=== PATIENT | male | born 1935 | race Caucasian/White ===

== ENCOUNTER 2018-12-02 17:05 | Inpatient (IN) ==
[2018-12-02] MEDS ORDERED: Sodium Chloride 0.9% 1,000 ML PRIMARY IV ONE (17:31)
[2018-12-02] MEDS ORDERED: LIDOCAINE HCL 2 % 10 ML JELLY URO-JECT TOPICAL ONE (17:34)
[2018-12-02] MEDS ORDERED: LIDOCAINE HCL 2 % 10 ML JELLY URO-JECT TOPICAL PRN (17:36)
[2018-12-02 17:45] LABS: BILIRUBIN,URINE NEGATIVE (NEG); CLARITY,URINE CLEAR (CLEAR); COLOR,URINE YELLOW (Y); GLUCOSE, URINE (UA) NEGATIVE (NEG); OCCULT BLOOD,URINE Trace-intact (NEG); PH,URINE 6.5 (5.0-8.5); PROTEIN,URINE NEGATIVE (NEG); UROBILINOGEN,URINE 0.2 EU/dL (0.2)
--- NOTE | 2018-12-02 17:47 | EKG ---
[address] [address] Measurements Intervals [place] Rate: 67 P: ME: 0 QRS: -60 QRSD: 144 T: 118 QT: 446 QTc: 461 Interpretive Statements ATRIAL FIBRILLATION ELECTRONIC VENTRICULAR PACEMAKER WITH FREQUENT VPCs ABNORMAL RHYTHM ECG Compared to ECG 01/04/2013 07:31:06 pacemaker and Vpcs now present Electronically Signed On 12-03-18 09:40:18 MDT by Ricardo Amin [email or web address]
[2018-12-02 17:49] LABS: RBC,URINE 0-3 /hpf; SQUAMOUS EPITHELIAL CELL,UR RARE; URINE SAMPLE TYPE CATH SPECIMEN
[2018-12-02 18:20] LABS: VENOUS PH 7.48 (7.32-7.42)
[2018-12-02 18:37] LABS: BASOPHILS # (AUTO) 0.03 10*3/UL; BASOPHILS % (AUTO) 0.3 % (0-1); EOSINOPHILS # (AUTO) 0.17 10*3/UL; EOSINOPHILS % (AUTO) 1.6 % (0-8); Hematocrit [HCT] 38.3 % (42.0-52.0); Hemoglobin [HGB] 11.7 g/dL (14.0-18.0); LYMPHOCYTES # (AUTO) 1.57 10*3/uL; MEAN CORPUSCULAR HEMOGLOBIN 27.6 PG (27-31); MEAN CORPUSCULAR HGB CONC 30.5 g/dL (33-37); MEAN CORPUSCULAR VOLUME 90.3 FL (80-90); MEAN PLATELET VOLUME 11.5 FL (7.4-12.2); MONOCYTES # (AUTO) 1.27 10*3/UL (0.3-0.8); MONOCYTES % (AUTO) 11.6 % (5-15); NEUTROPHILS # (AUTO) 7.87 10*3/UL; RED BLOOD COUNT 4.24 10^6/uL (4.70-6.10)
[2018-12-02 18:39] LABS: PLATELET MORPHOLOGY COMMENT NORMAL MORPHOLOGY (NORM); RBC MORPHOLOGY COMMENT NORMAL MORPHOLOGY (NORM); WBC MORPHOLOGY COMMENT NORMAL MORPHOLOGY (NORM)
[2018-12-02 18:48] LABS: BLOOD UREA NITROGEN 29 mg/dL (7-22); BUN/CREATININE RATIO 36.25 (6-20); SERUM ALBUMIN 3.6 g/dL (3.5-4.8)
--- NOTE | 2018-12-02 19:11 | DI ---
CT Head WO Contrast 12/02/2018 5:35 PM History: [facility] ^confusion Comparison: None. Procedure: Noncontrast CT images through the head were reviewed. Findings: There is no acute intracranial hemorrhage or extra-axial fluid collection. The ventricles a re symmetric. There is moderate global atrophy which is within the expected range for age. Decreased attenuation in the periventricular and subcortical white matter is consistent with moderate chronic s mall vessel ischemic changes. There is otherwise normal nguyen-white differentiation without focal mass or mass-effect. The visualized portions of the mastoid air cells are clear. There is complete opacif ication of the right maxillary and frontal sinuses. Review of the osseous structures demonstrate no d epressed calvarial fracture or aggressive osseous lesion. The facial soft tissues are unremarkable. Impression: 1. No acute intracranial findings. 2. Age related senescent changes as above. 3. Complete opacification of the right maxillary and frontal sinuses.
--- NOTE | 2018-12-02 20:09 | DI ---
XR CXR 1VW 12/02/2018 6:12 PM HISTORY: [facility] [place] [facility] ^YES ^EDEMA, DYSPNEA Comparison: None. Findings: A single portable frontal view of the chest is submitted. There is a single lead left chest cardiac device with the wire tip projecting below the level of imaging. Images demonstrate hyperinflation without focal consolidation. There is no large pneumothorax. The ca rdiomediastinal silhouette is enlarged with increased pulmonary vasculature. The cardiac silhouette o bscures the left costophrenic angle limiting evaluation for a pleural effusion. There are atheromatou s calcifications in the arch of the tortuous thoracic aorta. The osseous structures are grossly unrem arkable. Impression: 1. There is no dense consolidation or pneumothorax. 2. There are findings concerning for pulmonary edema in the setting of heart failure. Left lung base effusion is not excluded.
--- NOTE | 2018-12-02 20:19 | PDOC ---
HPI - History of Present Illness History of Present Illness: This is a very nice 83-year-old gentleman who lives at [facility] since June he was more lethargic and lower with lower extremity edema was trans ferred to the ER. He is very somnolent but is arousable his daughter says he's been overweight for a long time and the ease had congestive heart failure and also lower extremity cellulitis where he almost lost his leg. 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 Patient denies any pain chest pain nausea vomiting at present time and continuously falls asleep Past Medical History Medical History: Congestive heart failure, arthritis, orbital obesity, sleep apnea, depression, dementia with behavioral disturbances Surgical History: Hip surgery Tobacco Use: Never Smoker In the Past 12 Months, Have Used or Abuse Any of the Following Substance: None Alcohol Use: None Medication / Allergies Home Medications: Home Medications Medication Instructions Recorded Confirmed Carvedilol 1 tab PO BID #60 tab 07/04/15 12/02/18 acetaminophen 500 mg tablet 1,000 mg PO Q6H PRN 09/01/17 12/02/18 benazepril 40 mg tablet 40 mg PO .qod #90 tab 09/01/17 12/02/18 buspirone 5 mg tablet 5 mg PO BID tab 09/01/17 12/02/18 cetirizine 10 mg tablet 10 mg PO QDAY tab 09/01/17 12/02/18 divalproex 250 mg tablet,delayed 250 mg PO QHS tab 09/01/17 12/02/18 release escitalopram 10 mg tablet 10 mg PO QDAY 09/01/17 12/02/18 furosemide 80 mg tablet 80 mg PO BID #90 tab 09/01/17 12/02/18 memantine 28 mg capsule 28 mg PO QDAY 09/01/17 12/02/18 sprinkle,extended release 24hr omeprazole 20 mg capsule,delayed 20 mg PO QDAY #180 cap 09/01/17 12/02/18 release rivaroxaban 20 mg tablet 20 mg PO QDAY #90 tab 09/01/17 12/02/18 tamsulosin 0.4 mg capsule 0.4 mg PO QHS cap 09/01/17 12/02/18 tramadol 50 mg tablet 50 mg PO TID tab 09/01/17 12/02/18 leuprolide (6 month) 45 mg 45 mg IM [id number] 02/23/18 12/02/18 intramuscular syringe kit jfuuhuhx-eaotgd-ysse-w.pet-alc 1 ea TOPICAL QHS ml 03/16/18 12/02/18 lotion cholecalciferol (vitamin D3) 2,000 2,000 unit PO QDAY 06/22/18 12/02/18 unit tablet potassium chloride ER 10 mEq 10 meq PO BID 08/31/18 12/02/18 tablet,extended release Furosemide [Lasix] 80 mg PO BID 12/02/18 12/02/18 Allergies/Adverse Reactions: Allergies Allergy/AdvReac Type Severity Reaction Status Date / Time codeine Allergy Hives Verified 12/02/18 17:25 hydrocodone [Hydrocodone] AdvReac HALLUCINATI Verified 12/02/18 17:25 ONS Review of Systems - Review of Systems All Systems: Reviewed & No Additional Complaints Except as Stated ROS Unobtainable: Due to Mental Status - Cardiovascular Cardiovascular: REPORTS: Edema Exam - Vitals Vital Signs: Vital Signs Temperature 96.3 F Temperature Source Temporal Artery Scan Pulse Rate [Pulse Oximeter] 68 Respiratory Rate 28 Blood Pressure [Left Arm] 131/83 Pulse Ox 96 Oxygen Flow Rate 4 Oxygen Delivery Method Nasal Cannula Height 6 ft 1 in Weight 340 lb - General General Appearance: Cooperative, Morbidly Obese - Head Head Exam: Normal Inspection, Normocephalic, Atraumatic - Neck Neck Exam: Normal Inspection - Respiratory Respiratory Exam: POSITIVE: Clear to Auscultation - Bilaterally, Decreased Breath Sounds. NEGATIVE: Wheezes, Coarse Breath Sounds - Cardiovascular Cardiovascular Exam: POSITIVE: RRR, No Murmur, No Clicks, No Gallops, No Rubs, PMI Non-Displaced - GI/Abdominal GI/Abdominal Exam: POSITIVE: Non Tender, No Masses. NEGATIVE: Guarding - Extremities Extremities Exam: POSITIVE: +3 Edema (Scrotal edema as well) Results - Labs CBC and BMP: 12/02/18 17:31 12/02/18 17:31 Assessment and Plan - Patient Problems (1) CHF (congestive heart failure) Current Visit: Yes Status: Acute Comment: I will start Lasix drip, potassium 4 to be oh twice a day Camacho catheter Code(s): I50.9 - Heart failure, unspecified (2) Sinusitis Current Visit: Yes Status: Acute Comment: Patient will be on Ancef for lower extremity cellulitis will treat the sinusitis as well Code(s): J32.9 - Chronic sinusitis, unspecified (3) Cellulitis Current Visit: No Status: Acute Comment: Both lower extremity edema and redness more on the left than the right Code(s): L03.90 - Cellulitis, unspecified (4) Dementia with behavioral disturbance Current Visit: No Status: Chronic Comment: T usual home meds Code(s): F03.91 - Unspecified dementia with behavioral disturbance Qualifiers: (5) Essential hypertension Current Visit: No Status: Chronic Comment: Stable at present time - Assessment / Plan Additional Assessment/Plan Details: Discussed with daughter and power of deputy prosecuting attorney patient is a DO NOT RESUSCITATE DO NOT RESUSCITATE DO NOT INTUBATE they do not wish to be transferred to [place] at this time and okay with me doing to the best I can my abilities here without cardiology or infectious disease backup I will order an echo I told her that this could be done only on Fridays
[2018-12-02] MEDS ORDERED: ceFAZolin Inj 2 GM in Sodium Chloride 0.9% 100 ML IV SCH (20:30)
[2018-12-02] MEDS ORDERED: DOCUSATE 100 MG CAPSULE PO PRN (20:31)
[2018-12-02] MEDS ORDERED: ACETAMINOPHEN 325 MG TABLET PO PRN (20:31)
[2018-12-02] MEDS ORDERED: ACETAMINOPHEN 500 MG TABLET PO PRN (20:31)
[2018-12-02] MEDS ORDERED: LIDOCAINE W/ SODIUM BICARB 0.5 ML SYR SUBD PRN (20:31)
[2018-12-02] MEDS ORDERED: HEPARIN 5000 UNIT/1 ML SUBCUT SCH (20:31)
[2018-12-02] MEDS ORDERED: ONDANSETRON 4 MG/2 ML VIAL IVP PRN (20:31)
[2018-12-02] MEDS ORDERED: CALCIUM CARBONATE 500 MG (TUMS) CHEWABLE TABLET PO PRN (20:31)
[2018-12-02] MEDS ORDERED: Rivaroxaban Tab 10 MG TAB PO SCH (21:00)
[2018-12-02] MEDS ORDERED: DIVALPROEX SODIUM 250 MG TABLET PO SCH (21:00)
[2018-12-02] MEDS ORDERED: TAMSULOSIN 0.4 MG CAPSULE PO SCH (21:00)
[2018-12-02] MEDS ORDERED: BENAZEPRIL HCL 20 MG TABLET PO SCH (21:00)
[2018-12-02] MEDS: ceFAZolin Inj 2gm (Premix) 2 GM/50 ML BAG IV SCH (21:18)
[2018-12-02] MEDS: Potassium Chloride Tab 10 MEQ TAB PO SCH (21:21)
[2018-12-02] MEDS: busPIRone HCL 5 MG TABLET PO SCH (21:21)
[2018-12-02] MEDS: CARVEDILOL 12.5 MG TABLET PO SCH (21:21)
[2018-12-02] MEDS: traMADol 50 MG TABLET PO SCH (21:22)
[2018-12-02] MEDS: POTASSIUM CHLORIDE 20 MEQ TAB PO SCH (21:22)
--- NOTE | 2018-12-02 22:50 | PDOC ---
General Adult HPI - General Chief Complaint: General Medical Stated Complaint: lethargy/edema Date Seen by Provider: 12/02/18 Time Seen by Provider: 17:20 Source: POSITIVE: Patient, EMS, [facility] records, Other (daughter) Exam Limitations: POSITIVE: Clinical condition (Patient is a very poor historian. Somnolent.) Nurse's Notes Reviewed & Considered: Yes EMS Report Reviewed & Considered: Verbal - History of Present Illness Initial Comment: The patient is an 83-year-old male who is brought to the emergency room from the [facility] by ambulance. The patient's daughter and the shelter staff states that for the last 2 days, approximately, the patient has had increasing lethargy and progressive pedal edema. Patient's daughter states that the patient "can't stay awake". Patient has a history of dementia and he has a cardiac pacemaker. He has a DO NOT RESUSCITATE status. Paramedics report that his blood glucose at the scene was 126. Past history of prostate cancer reportedly atrial fibrillation, hypertension and sleep apnea. History of pedal edema and cellulitis. Have you received a tetanus shot in the past 10 years?: Yes Body Location Affected: REPORTS: Lower Extremity (L), Lower Extremity (R) (Pedal edema), Other (Lethargy) Timing: REPORTS: Gradual, Getting Worse Duration: >24 hours Severity: Moderate Quality: REPORTS: "Pain" (Erythema warmth and pain on palpation distal aspects of both lower extremities) Context: DENIES: None, Sitting, Standing, Activity, Emotional stress, Coughing, Recent Trauma, Recent Surgery, Sleep, Rest, Lifting, Turning, Bending, Fall, Near Fall, Other Modifying Factors: improves with: Nothing Similar Symptoms Previously: Yes Recent Care Received: REPORTS: Denies Any Prior Injuries Related to Current Complaint?: No - Patient Home Medications Home Medications: Home Medications Carvedilol 1 tab PO BID #60 tab 07/04/15 acetaminophen 500 mg tablet 1,000 mg PO Q6H PRN 09/01/17 benazepril 40 mg tablet 40 mg PO .qod #90 tab 09/01/17 buspirone 5 mg tablet 5 mg PO BID tab 09/01/17 cetirizine 10 mg tablet 10 mg PO QDAY tab 09/01/17 divalproex 250 mg tablet,delayed release 250 mg PO QHS tab 09/01/17 escitalopram 10 mg tablet 10 mg PO QDAY 09/01/17 furosemide 80 mg tablet 80 mg PO BID #90 tab 09/01/17 memantine 28 mg capsule sprinkle,extended release 24hr 28 mg PO QDAY 09/01/17 omeprazole 20 mg capsule,delayed release 20 mg PO QDAY #180 cap 09/01/17 rivaroxaban 20 mg tablet 20 mg PO QDAY #90 tab 09/01/17 tamsulosin 0.4 mg capsule 0.4 mg PO QHS cap 09/01/17 tramadol 50 mg tablet 50 mg PO TID tab 09/01/17 leuprolide (6 month) 45 mg intramuscular syringe kit 45 mg IM [id number] 02/23/18 vtskykog-ywwfiv-eryf-w.pet-alc lotion 1 ea TOPICAL QHS ml 03/16/18 cholecalciferol (vitamin D3) 2,000 unit tablet 2,000 unit PO QDAY 06/22/18 potassium chloride ER 10 mEq tablet,extended release 10 meq PO BID 08/31/18 Furosemide [Lasix] 80 mg PO BID 12/02/18 - Patient Allergies Allergies/Adverse Reactions: Allergies Allergy/AdvReac Type Severity Reaction Status Date / Time codeine Allergy Hives Verified 12/02/18 17:25 hydrocodone [Hydrocodone] AdvReac HALLUCINATI Verified 12/02/18 17:25 ONS Past Medical History - heen HEENT History: Denies History Cardiovascular History: Hypertension, Arrhythmia Additional Cardiovasular History: A FIB PER EKG. PT STARTED ON COUMADIN/LOVENOX THERAPY PER DR COLIN PRE OP Respiratory History: Sleep Apnea Gastrointestinal History: GERD Genitourinary History: Denies History Endocrine History: Denies History Musculoskeletal History: Arthritis, Joint Pain Prosthesis or Implant: Yes Neurological History: Denies History Blood Disorders: Denies History Psychiatric History: Denies History Cancer History: Other (please comment) In Past Year Been Physically Harmed or Verbally Threatened: No History of MDRO: No Tobacco Use: Never Smoker Alcohol Use: None In the Past 12 Months, Have Used or Abuse Any Substance: None Previous Surgical History: Yes Type / Date of Surgery: KNEE, HIP, PACER Anesthesia Reactions: Yes (PONV) Significant Family History: No pertinent family hx Past Medical History Reviewed: Reviewed - No Changes ROS - Limitations ROS Limitations: No Limitations Constitution: REPORTS: Weakness Cardiovascular: REPORTS: Denies Cardiac Symptoms Respiratory: REPORTS: Shortness Of Breath Neurological: REPORTS: Denies Neuro Symptoms Gastrointestinal: REPORTS: Denies GI Symptoms Endocrine: REPORTS: Denies Symptoms Musculoskeletal: REPORTS: Lower Extremity Swelling Genitourinary: REPORTS: Denies Symptoms Eyes: REPORTS: Denies Symptoms ENT: REPORTS: Denies Symptoms Skin: REPORTS: Other (Redness warmth and tenderness distal aspects of both lower legs; pedal edema both lower legs) Lympathic: REPORTS: Denies Lympathic Symptoms Immunologic: POSITIVE: Denies Symptoms Psychiatric: POSITIVE: Denies Psych Symptoms General Adult Exam - General Appearance General Appearance: POSITIVE: Cooperative, No Acute Distress, No Evidence of Trauma, Lethargic (Lethargic but answers most questions appropriately. Disoriented to date and president. Recognizes and is appropriately conversant with daughter. Somnolent.). NEGATIVE: Alert - HEENT HEENT: POSITIVE: Head Inspection Nml, Eyes Inspection Nml, Ears Inspection Nml, Nose Inspection Nml, Oral/Dental Inspect. Nml, Pharynx Inspect. Nml, PERRL, EOMI - Pupils Pupil Size: 3 mm: Bilateral (PERRLA) - Neck Neck: POSITIVE: Normal Inspection, Thyroid Normal - Respiratory Respiratory: POSITIVE: Rales (Bibasilar rales posteriorly). NEGATIVE: Breath Sounds Normal - Cardiovascular Cardiovascular: POSITIVE: Regular Rate & Rhythm, No Murmur, No Gallop Peripheral Pulses: Radial (R): 2+, Radial (L): 2+ - Abdomen Abdomen: Soft: (All Quadrants), Normal Bowel Sounds: (All Quadrants), Denies Tenderness: (All Quadrants), No Splenomegaly: (All Quadrants), No Hepatomegaly: (All Quadrants), No Guarding: (All Quadrants), No Rebound: (All Quadrants), No Palpable Pulse: (All Quadrants), No Palpabale Mass: (All Quadrants), No Distention: (All Quadrants), No Rigidity: (All Quadrants) Additional Abdominal Details: Patient is incontinent of urine and patient's garments are urine soaked. Patient has a prominent bone ileal rash and erythema in the inguinal areas and over the genitalia; no skin breakdown or signs of gangrene. - Back Back: POSITIVE: Normal Inspection. NEGATIVE: CVA Tenderness, Thoracic Tenderness, Lumbosacral Tenderness - Skin Skin: POSITIVE: Warmth, Erythema (Warmth and erythema over area of pedal edema both lower extremities) - Extremities Extremity: Non-Tender: (LUE), (RUE), Normal ROM: (All Extremities), Normal Inspection: (LUE), (RUE), Pelvis Stable: (All Extremities), Normal Tendon Exam: (All Extremities), Edema / Swelling: (RLE), (LLE), Signs / Symptoms of Infection Present: (RLE), (LLE), Erythema: (RLE), (LLE) Additional Extremities Details: Bilateral pedal edema with warmth and erythema and distal aspects of both lower extremities and dorsums of feet compatible with cellulitis. 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 NEGATIVE: Affect Apporpriate (Somnolent), Oriented X3 (Disoriented to time and president), Disoriented To Time Images - Complete Complete: 1 - Bilateral pedal edema with cellulitis General Adult Progress - Results Reviewed by me Xrays/CTs/US Reviewed by me: Yes Discussed with Radiologist: Yes Radiology Findings: Compatible with pulmonary edema; no consolidations. Lab Results Reviewed by Me: Yes (2 blood cultures drawn) Lab Results:: Laboratory Results 12/02/18 12/02/18 12/02/18 17:31 17:31 17:31 WBC 10.92 H RBC 4.24 L Hgb 11.7 L Hct 38.3 L MCV 90.3 H MCH 27.6 MCHC 30.5 L RDW Std Deviation 53.2 H RDW Coeff of Abhinav 16.5 H Plt Count 272 MPV 11.5 Immature Gran % (Auto) 0.1 Neut % (Auto) 72.0 Lymph % (Auto) 14.4 Whitman % (Auto) 11.6 Eos % (Auto) 1.6 Baso % (Auto) 0.3 Immature Gran # (Auto) 0.01 Neut # (Auto) 7.87 Lymph # (Auto) 1.57 Whitman # (Auto) 1.27 H Eos # (Auto) 0.17 Baso # (Auto) 0.03 WBC Morphology Comment Normal morphology Plt Morphology Comment Normal morphology RBC Morph Comment Normal morphology VBG pH VBG pCO2 VBG HCO3 VBG Base Excess Sodium 142 Potassium 3.8 Chloride 101 Carbon Dioxide 32 Anion Gap 9 BUN 29 H Creatinine 0.8 BUN/Creatinine Ratio 36.25 H Glucose 118 H Calculated Osmolality 300.0 H Lactic Acid 1.4 Calcium 9.2 Magnesium 2.5 H Total Bilirubin 0.2 L AST 32 ALT 28 Alkaline Phosphatase 155 H Total Creatine Kinase CK-MB (CK-2) Troponin I C-Reactive Protein 5.0 H NT-Pro-B Natriuret Pep 2430 H Total Protein 7.3 Albumin 3.6 Globulin 3.8 Albumin/Globulin Ratio 0.90 L Ur Collection Type Urine Color Urine Clarity Urine pH Ur Specific [place] Urine Protein Urine Glucose (UA) Urine Ketones Urine Occult Blood Urine Nitrate Urine Bilirubin Urine Urobilinogen Ur Leukocyte Esterase Urine RBC Urine WBC Ur Squamous Epith Cells Ur Renal Epithelial Cell Urine Crystals Urine Bacteria Urine Casts Urine Mucus Urine Trichomonas Urine Yeast Ur Culture Indicated? 12/02/18 12/02/18 12/02/18 17:31 17:38 18:08 WBC RBC Hgb Hct MCV MCH MCHC RDW Std Deviation RDW Coeff of Abhinav Plt Count MPV Immature Gran % (Auto) Neut % (Auto) Lymph % (Auto) [place] % (Auto) Eos % (Auto) Baso % (Auto) Immature Gran # (Auto) Neut # (Auto) Lymph # (Auto) [place] # (Auto) Eos # (Auto) Baso # (Auto) WBC Morphology Comment Plt Morphology Comment RBC Morph Comment VBG pH VBG pCO2 VBG HCO3 VBG Base Excess Sodium Potassium Chloride Carbon Dioxide Anion Gap BUN Creatinine BUN/Creatinine Ratio Glucose Calculated Osmolality Lactic Acid Calcium Magnesium Total Bilirubin AST ALT Alkaline Phosphatase Total Creatine Kinase 130 CK-MB (CK-2) 4.97 Troponin I < 0.012 C-Reactive Protein NT-Pro-B Natriuret Pep Total Protein Albumin Globulin Albumin/Globulin Ratio Ur Collection Type Cath specimen Urine Color Yellow Urine Clarity Clear Urine pH 6.5 Ur Specific [place] 1.015 Urine Protein Negative Urine Glucose (UA) Negative Urine Ketones Negative Urine Occult Blood Trace-intact H Urine Nitrate Negative Urine Bilirubin Negative Urine Urobilinogen 0.2 Ur Leukocyte Esterase Negative Urine RBC 0-3 Urine WBC None Ur Squamous Epith Cells Rare Ur Renal Epithelial Cell None Urine Crystals None Urine Bacteria None Urine Casts None Urine Mucus Rare Urine Trichomonas None Urine Yeast None Ur Culture Indicated? Culture not set 12/02/18 18:12 WBC RBC Hgb Hct MCV MCH MCHC RDW Std Deviation RDW Coeff of Abhinav Plt Count MPV Immature Gran % (Auto) Neut % (Auto) Lymph % (Auto) [place] % (Auto) Eos % (Auto) Baso % (Auto) Immature Gran # (Auto) Neut # (Auto) Lymph # (Auto) [place]man # (Auto) Eos # (Auto) Baso # (Auto) WBC Morphology Comment Plt Morphology Comment RBC Morph Comment VBG pH 7.48 H VBG pCO2 39 L VBG HCO3 29 H VBG Base Excess 5 H Sodium Potassium Chloride Carbon Dioxide Anion Gap BUN Creatinine BUN/Creatinine Ratio Glucose Calculated Osmolality Lactic Acid Calcium Magnesium Total Bilirubin AST ALT Alkaline Phosphatase Total Creatine Kinase CK-MB (CK-2) Troponin I C-Reactive Protein NT-Pro-B Natriuret Pep Total Protein Albumin Globulin Albumin/Globulin Ratio Ur Collection Type Urine Color Urine Clarity Urine pH Ur Specific [place] Urine Protein Urine Glucose (UA) Urine Ketones Urine Occult Blood Urine Nitrate Urine Bilirubin Urine Urobilinogen Ur Leukocyte Esterase Urine RBC Urine WBC Ur Squamous Epith Cells Ur Renal Epithelial Cell Urine Crystals Urine Bacteria Urine Casts Urine Mucus Urine Trichomonas Urine Yeast Ur Culture Indicated? CBC and BMP: 12/02/18 17:31 12/02/18 17:31 EKG Interpreted/Reviewed By Me:: Yes (demand pacemaker) EKG Interpretation:: POSITIVE: Abnormal EKG (Demand pacemaker) - Patient's Progress Pain Medication Addressed: POSITIVE: Not Applicable School/Work Release Addressed: POSITIVE: Not Applicable Re-Examine Time: 19:30 Re-Examine Comment: 2 blood cultures were drawn. Case was discussed with leonela carmona operations accountant. Diagnosis is cellulitis, pedal edema and congestive heart failure. Patient is admitted to hospitalist for further evaluation and treatment. Status: POSITIVE: Unchanged, Re-Examined Antibiotics Given: No - Consult Consult (If Yes, Name of Consulting MD & Time Called): Yes (Dr. Guzman, [facility] t 1930,) Consulting MD will see pt:: POSITIVE: [facility] Admit Counseled: POSITIVE: Patient, Family, RE: Lab Results, RE: Radiology Results, RE: DX, RE: Need for F/U Patient Care Time - Estimated PCT Patient Care Time (In Minutes): 60 Vital Signs - Recent Vital Signs Vital Signs: Vital Signs (Last 8 hours) Temp Pulse Resp BP Pulse Ox 12/02/18 21:00 96.1 F L 57 L 22 134/74 97 12/02/18 17:05 96.3 F L 68 28 H 131/83 96 - VS Reviewed Vital Signs Reviewed: Yes Discharge Clinical Impression: Congestive heart failure, Cellulitis, Lethargy Discharge Disposition: Admit to Inpatient Condition: Fair Date Decision to Admit to Inpatient: 12/02/18 Time Decision to Admit to Inpatient: 19:15
[2018-12-03] MEDS ORDERED: ceFAZolin Inj 2 GM in Sodium Chloride 0.9% 100 ML IV SCH (04:30)
[2018-12-03] MEDS: ceFAZolin Inj 2gm (Premix) 2 GM/50 ML BAG IV SCH (05:12)
[2018-12-03 05:21] LABS: BASOPHILS # (AUTO) 0.03 10*3/UL; BASOPHILS % (AUTO) 0.3 % (0-1); EOSINOPHILS # (AUTO) 0.06 10*3/UL; EOSINOPHILS % (AUTO) 0.6 % (0-8); Hematocrit [HCT] 40.7 % (42.0-52.0); Hemoglobin [HGB] 11.8 g/dL (14.0-18.0); LYMPHOCYTES # (AUTO) 1.23 10*3/uL; MEAN CORPUSCULAR HEMOGLOBIN 27.3 PG (27-31); MEAN PLATELET VOLUME 10.9 FL (7.4-12.2); MONOCYTES # (AUTO) 1.11 10*3/UL (0.3-0.8); MONOCYTES % (AUTO) 10.3 % (5-15); NEUTROPHILS # (AUTO) 8.37 10*3/UL; NEUTROPHILS % (AUTO) 77.2 % (50-80); RED BLOOD COUNT 4.33 10^6/uL (4.70-6.10)
[2018-12-03 05:23] LABS: PLATELET MORPHOLOGY COMMENT NORMAL MORPHOLOGY (NORM); RBC MORPHOLOGY COMMENT NORMAL MORPHOLOGY (NORM); WBC MORPHOLOGY COMMENT NORMAL MORPHOLOGY (NORM)
[2018-12-03 05:48] LABS: BLOOD UREA NITROGEN 28 mg/dL (7-22); BUN/CREATININE RATIO 31.11 (6-20); SERUM ALBUMIN 3.3 g/dL (3.5-4.8)
[2018-12-03] MEDS ORDERED: OMEPRAZOLE 20 MG CAPSULE PO SCH (07:00)
[2018-12-03] MEDS ORDERED: FUROSEMIDE 10 MG/1 ML - 2 ML VIAL IVP SCH (07:00)
[2018-12-03 08:43] VITALS: BP 99/51; TEMP 98.8; O2SAT 88
[2018-12-03] MEDS ORDERED: LORATADINE 10 MG TABLET PO SCH (09:00)
[2018-12-03] MEDS ORDERED: ESCITALOPRAM 10 MG TABLET PO SCH (09:00)
[2018-12-03] MEDS ORDERED: CHOLECALCIFEROL 1000 IU TABLET PO SCH (09:00)
[2018-12-03] MEDS: busPIRone HCL 5 MG TABLET PO SCH (09:25)
[2018-12-03] MEDS: CARVEDILOL 12.5 MG TABLET PO SCH (09:25)
[2018-12-03] MEDS: Potassium Chloride Tab 10 MEQ TAB PO SCH (09:25)
[2018-12-03] MEDS: POTASSIUM CHLORIDE 20 MEQ TAB PO SCH (09:25)
[2018-12-03] MEDS: traMADol 50 MG TABLET PO SCH (09:25)
[2018-12-03] MEDS ORDERED: Sodium Chloride 0.9% 1,000 ML PRIMARY IV SCH (10:45)
[2018-12-03] MEDS ORDERED: Morphine Drip 250mg/250ml 250 MG/250 ML PLAST..BAG IV SCH (10:45)
[2018-12-03] MEDS ORDERED: Hypromellose/Glycerin/PEG 400 Ophth Soln 15 ML DROPS EACH EYE SCH (10:45)
--- NOTE | 2018-12-03 12:18 | DCSUMMARY ---
Hospitalization Summary Hospital Course: Final Discharge Diagnosis: Current Visit Problems Problem Status Onset Code CHF (congestive heart failure) Acute I50.9 Sinusitis Acute J32.9 Lethargy Acute R53.83 Cellulitis Acute L03.90 this peacefully Diagnostic Data, Laboratory Data, and Procedures of Signifigance: Laboratory Results 12/02/18 12/02/18 12/02/18 17:31 17:31 17:31 WBC 10.92 H RBC 4.24 L Hgb 11.7 L Hct 38.3 L MCV 90.3 H MCH 27.6 MCHC 30.5 L RDW Std Deviation 53.2 H RDW Coeff of Abhinav 16.5 H Plt Count 272 MPV 11.5 Immature Gran % (Auto) 0.1 Neut % (Auto) 72.0 Lymph % (Auto) 14.4 [place] % (Auto) 11.6 Eos % (Auto) 1.6 Baso % (Auto) 0.3 Immature Gran # (Auto) 0.01 Neut # (Auto) 7.87 Lymph # (Auto) 1.57 [place] # (Auto) 1.27 H Eos # (Auto) 0.17 Baso # (Auto) 0.03 WBC Morphology Comment Normal morphology Plt Morphology Comment Normal morphology RBC Morph Comment Normal morphology VBG pH VBG pCO2 VBG HCO3 VBG Base Excess Sodium 142 Potassium 3.8 Chloride 101 Carbon Dioxide 32 Anion Gap 9 BUN 29 H Creatinine 0.8 BUN/Creatinine Ratio 36.25 H Glucose 118 H Calculated Osmolality 300.0 H Lactic Acid 1.4 Calcium 9.2 Magnesium 2.5 H Total Bilirubin 0.2 L AST 32 ALT 28 Alkaline Phosphatase 155 H Total Creatine Kinase CK-MB (CK-2) Troponin I C-Reactive Protein 5.0 H NT-Pro-B Natriuret Pep 2430 H Total Protein 7.3 Albumin 3.6 Globulin 3.8 Albumin/Globulin Ratio 0.90 L Ur Collection Type Urine Color Urine Clarity Urine pH Ur Specific [place] Urine Protein Urine Glucose (UA) Urine Ketones Urine Occult Blood Urine Nitrate Urine Bilirubin Urine Urobilinogen Ur Leukocyte Esterase Urine RBC Urine WBC Ur Squamous Epith Cells Ur Renal Epithelial Cell Urine Crystals Urine Bacteria Urine Casts Urine Mucus Urine Trichomonas Urine Yeast Ur Culture Indicated? 12/02/18 12/02/18 12/02/18 17:31 17:38 18:08 WBC RBC Hgb Hct MCV MCH MCHC RDW Std Deviation RDW Coeff of Abhinav Plt Count MPV Immature Gran % (Auto) Neut % (Auto) Lymph % (Auto) [place] % (Auto) Eos % (Auto) Baso % (Auto) Immature Gran # (Auto) Neut # (Auto) Lymph # (Auto) [place] # (Auto) Eos # (Auto) Baso # (Auto) WBC Morphology Comment Plt Morphology Comment RBC Morph Comment VBG pH VBG pCO2 VBG HCO3 VBG Base Excess Sodium Potassium Chloride Carbon Dioxide Anion Gap BUN Creatinine BUN/Creatinine Ratio Glucose Calculated Osmolality Lactic Acid Calcium Magnesium Total Bilirubin AST ALT Alkaline Phosphatase Total Creatine Kinase 130 CK-MB (CK-2) 4.97 Troponin I < 0.012 C-Reactive Protein NT-Pro-B Natriuret Pep Total Protein Albumin Globulin Albumin/Globulin Ratio Ur Collection Type Cath specimen Urine Color Yellow Urine Clarity Clear Urine pH 6.5 Ur Specific [place] 1.015 Urine Protein Negative Urine Glucose (UA) Negative Urine Ketones Negative Urine Occult Blood Trace-intact H Urine Nitrate Negative Urine Bilirubin Negative Urine Urobilinogen 0.2 Ur Leukocyte Esterase Negative Urine RBC 0-3 Urine WBC None Ur Squamous Epith Cells Rare Ur Renal Epithelial Cell None Urine Crystals None Urine Bacteria None Urine Casts None Urine Mucus Rare Urine Trichomonas None Urine Yeast None Ur Culture Indicated? Culture not set 12/02/18 12/03/18 12/03/18 18:12 05:10 05:10 WBC 10.82 H RBC 4.33 L Hgb 11.8 L Hct 40.7 L MCV 94.0 H MCH 27.3 MCHC 29.0 L RDW Std Deviation 56.4 H RDW Coeff of Abhinav 16.8 H Plt Count 294 MPV 10.9 Immature Gran % (Auto) 0.2 Neut % (Auto) 77.2 Lymph % (Auto) 11.4 [place] % (Auto) 10.3 Eos % (Auto) 0.6 Baso % (Auto) 0.3 Immature Gran # (Auto) 0.02 Neut # (Auto) 8.37 Lymph # (Auto) 1.23 [place] # (Auto) 1.11 H Eos # (Auto) 0.06 Baso # (Auto) 0.03 WBC Morphology Comment Normal morphology Plt Morphology Comment Normal morphology RBC Morph Comment Normal morphology VBG pH 7.48 H VBG pCO2 39 L VBG HCO3 29 H VBG Base Excess 5 H Sodium 145 Potassium 4.4 Chloride 100 Carbon Dioxide 34 H Anion Gap 11 BUN 28 H Creatinine 0.9 BUN/Creatinine Ratio 31.11 H Glucose 130 H Calculated Osmolality 307.0 H Lactic Acid Calcium 8.7 Magnesium Total Bilirubin 0.2 L AST 29 ALT 32 Alkaline Phosphatase 145 H Total Creatine Kinase CK-MB (CK-2) Troponin I C-Reactive Protein NT-Pro-B Natriuret Pep Total Protein 6.7 Albumin 3.3 L Globulin 3.4 Albumin/Globulin Ratio 0.90 L Ur Collection Type Urine Color Urine Clarity Urine pH Ur Specific [place] Urine Protein Urine Glucose (UA) Urine Ketones Urine Occult Blood Urine Nitrate Urine Bilirubin Urine Urobilinogen Ur Leukocyte Esterase Urine RBC Urine WBC Ur Squamous Epith Cells Ur Renal Epithelial Cell Urine Crystals Urine Bacteria Urine Casts Urine Mucus Urine Trichomonas Urine Yeast Ur Culture Indicated? History and Physical pertinent to Admission: Course of Hospitalization: Is a very nice 83-year-old gentleman from [facility] who comes in with severe G, anasarca, cellulitis of his lower him in congestive heart failure. His daughter and power of deputy prosecuting attorney did not want him to be transferred anywhere and she wanted to try I told her we will try to diurese him aggressively throughout the night he only had 500 out on the more on a Lasix drip patient continued to be responsive this morning the we discussed further plans with family members with the daughter and granddaughter and she knew very specifically what his wishes were and he didn't do not want any supportive measures this point and the family decided for the withdrawal of all therapies and to treat the primary if symptoms of pain and discomfort. Patient was breathing at 33/m this morning I told him we would start a morphine drip to keep respirations 28 and 10 while the nurse was hanging in there and the morphine and making preparations for this the patient passed peacefully. On the date of discharge, the patient was examined: Gen.: Unresponsive Heart: [Regular rate and rhythm, no murmurs, clicks, gallops, or rubs] Lungs: crackles throughout with labored breathing Abdomen/GI: [On the lower extremities up to abdomen Musculoskeletal/extremities: 4 pitting edema Vitals reviewed and are listed below Vital Signs (24 hrs) 12/02/18 17:05 12/02/18 20:20 12/02/18 21:00 Temperature 96.3 F L 96.7 F L 96.1 F L Pulse Rate 66 Pulse Rate [Pulse Oximeter] 68 57 L Respiratory Rate 28 H 22 22 Blood Pressure 113/84 Blood Pressure [Left Arm] 131/83 134/74 Blood Pressure [Right Arm] Pulse Ox 96 96 97 12/02/18 23:00 12/03/18 00:13 12/03/18 03:00 Temperature 97.5 F Pulse Rate 72 78 Pulse Rate [Pulse Oximeter] 82 Respiratory Rate 20 Blood Pressure Blood Pressure [Left Arm] Blood Pressure [Right Arm] 125/71 Pulse Ox 95 12/03/18 04:47 12/03/18 05:00 12/03/18 08:41 Temperature 97.0 F 98.8 F Pulse Rate Pulse Rate [Pulse Oximeter] 72 79 Respiratory Rate 20 28 H Blood Pressure Blood Pressure [Left Arm] Blood Pressure [Right Arm] 122/67 99/51 Pulse Ox 90 92 88 Assessment and Plan: 1. As per discharge assessments above 2. Disposition: peacefully 3. Exam - Vitals Vital Signs: Vital Signs Temperature 98.8 F Temperature Source Temporal Artery Scan Pulse Rate [Pulse Oximeter] 79 Pulse Rate 78 Respiratory Rate 28 Blood Pressure [Right Arm] 99/51 Blood Pressure [Left Arm] 134/74 Blood Pressure 113/84 Pulse Ox 88 Oxygen Flow Rate 4 Oxygen Delivery Method Nasal Cannula Height 6 ft 1 in Weight 340 lb Patient Problems - Patient Problem List (1) CHF (congestive heart failure) Current Visit: Yes Status: Acute Code(s): I50.9 - Heart failure, unspecified Category: Medical (2) Sinusitis Current Visit: Yes Status: Acute Code(s): J32.9 - Chronic sinusitis, unspecified Category: Medical (3) Cellulitis Current Visit: Yes Status: Acute Code(s): L03.90 - Cellulitis, unspecified Category: Medical (4) Dementia with behavioral disturbance Current Visit: No Status: Chronic Comment: He is on memantine 28 mg/day, buspirone 5 mg BID, divalproex 250 mg Q HS, escitalopram 10 mg daily. Code(s): F03.91 - Unspecified dementia with behavioral disturbance Qualifiers: Category: Medical (5) Essential hypertension Current Visit: No Status: Chronic Comment: Treated adequately for age with benazepril 40 mg every other day, carvedilol BID Category: Medical
[2018-12-03 13:41] VITALS: RESP 33
== END 2018-12-03 11:15 | disposition expired | DRG 292 ==
LOC: ER 17:05 → MED/SURG 19:59
PROVIDERS: ADMIT Internal Medicine; ATTEND Internal Medicine